=== PATIENT | female | born 1935 | race Caucasian/White ===

== ENCOUNTER → 2016-04-01 | Outpatient (CLI) | payer OTHER ==
[~2016-04-01] MED LIST: ACET325T96 PO; ASPI81TA28 PO; BISA10SU5 PR; CALC-354 PO; DULO-24 PO; HYDR-4715 PO; INSU3INJ3 SQ; IPRASOL4 INH; ISOS120T5 PO; MAGNSUS5 PO; METO1TAB69 PO; NVLGI SC; ONDA4TAB46 PO; POLY335019 PO; POTTAB2 PO; PREG100C PO; PRNJ PO; SENN-58 PO; SIMV20TA2 PO; ZNTT/150 PO
[2016-04-01 08:36] LABS: ALT/SGPT 14 U/L (12-78); BLOOD UREA NITROGEN 26 mg/dl (7-18); CARBON DIOXIDE 25 mmol/L (21-32); CHLORIDE 109 mmol/L (98-107); CHOLESTEROL 117 mg/dl (0-200); GLUCOSE 260 mg/dl (70-99); SODIUM 143 mmol/L (136-145)
[2016-04-01 08:39] LABS: ALB/GLOB RATIO 0.7 (0.9-2); ALKALINE PHOSPHATASE 68 U/L (45-117); AST/SGOT 10 U/L (15-37); CHOLESTEROL/HDL RATIO 3.3; HDL CHOLESTEROL 36 mg/dl; LDL CHOLESTEROL CALCULATED 48 mg/dl; TRIGLYCERIDES 163 mg/dl (0-150); VERY LOW DENSITY LIPOPROT CALC 33 mg/dl
== END ==
LOC: C.LABCC 07:37
PROVIDERS: ATTEND Internal Medicine
DX: E78.5 Hyperlipidemia, unspecified (principal)

== ENCOUNTER → 2016-05-30 | Outpatient (CLI) | payer OTHER ==
[~2016-05-30] MED LIST changes: +METO100T44 PO; -METO1TAB69 PO
[2016-05-30 09:31] LABS: ESTIMATED AVERAGE GLUCOSE 157 mg/dl; HA1C FLAG Normal (Normal)
== END ==
LOC: C.LABCC 08:02
PROVIDERS: ATTEND Internal Medicine
DX: E11.9 Type 2 diabetes mellitus without complications (principal)